=== PATIENT | male | born 1940 | race Caucasian/White ===

== ENCOUNTER 2016-11-09 11:35 | Inpatient (IN) | payer OTHER, SELFPAY ==
[~2016-11-09] VITALS: Ht 180.3 cm; Wt 59.0 kg
[~2016-11-09 11:35] MED LIST: ALPHAGAN P5 ML OP; ASPIRIN EC81 MG PO; ATENOLOL25 MG PO; CATAPRES 0.1MG0.1 MG PO; HYZAAR 50-12.51 EACH PO; LASIX20 MG PO; LIPITOR20 MG PO; LUMIGAN5 ML OP; NORCO 5-325 TA1 EACH PO; SYNTHROID150 MCG PO; TYLENOL 325MG325 MG PO; VITAMIN B-1000 MCG/M IM
[2016-11-09 11:51] LABS: HEMOGLOBIN 11.3 gm/dl (14.0-17.5); RED BLOOD COUNT 4.17 M/UL (4.20-5.50); WHITE BLOOD COUNT 5.6 K/UL (4.5-11.0)
[2016-11-09 12:20] LABS: BUN/CREATININE RATIO 14 (0-10)
[2016-11-09] MEDS ORDERED: TENORMIN 50 MG50 MG PO (19:47)
[2016-11-09] MEDS ORDERED: LEXAPRO5 MG PO (19:48)
[2016-11-09] MEDS ORDERED: NEURONTIN 300300 MG PO (19:48)
[2016-11-09] MEDS ORDERED: PROTONIX 40 MG40 M1 PO (19:50)
[2016-11-09] MEDS ORDERED: PLAVIX75 MG PO (19:51)
[2016-11-09] MEDS ORDERED: SYNTHROID125 MCG PO (19:51)
[2016-11-09] MEDS ORDERED: LIORESAL TAB 1010 MG PO (19:52)
[2016-11-09] MEDS ORDERED: HYDRALAZINE HCL50 MG PO (19:52)
[2016-11-09] MEDS ORDERED: REQUIP0.25 MG PO (19:53)
[2016-11-10 05:27] LABS: HEMOGLOBIN 12.1 gm/dl (14.0-17.5); RED BLOOD COUNT 4.42 M/UL (4.20-5.50)
[2016-11-10 05:45] LABS: BUN/CREATININE RATIO 14 (0-10)
[2016-11-13 06:24] LABS: HEMOGLOBIN 11.9 gm/dl (14.0-17.5); RED BLOOD COUNT 4.38 M/UL (4.20-5.50); WHITE BLOOD COUNT 14.7 K/UL (4.5-11.0)
[2016-11-14 06:24] LABS: HEMOGLOBIN 10.9 gm/dl (14.0-17.5)
[2016-11-14 06:31] LABS: WHITE BLOOD COUNT 8.9 K/UL (4.5-11.0)
[2016-11-15 06:00] LABS: BUN/CREATININE RATIO 27 (0-10)
[2016-11-16 06:22] LABS: BUN/CREATININE RATIO 30 (0-10)
== END 2016-11-19 18:32 | DRG 91 ==
LOC: ER1 11:35 → ZEROF 17:55 → M/S 20:20
PROVIDERS: Family Medicine; Internal Medicine; ADMIT Emergency Medicine
DX: G24.9 Dystonia, unspecified (principal); G92 Toxic encephalopathy; E43 Unspecified severe protein-calorie malnutrition; N17.9 Acute kidney failure, unspecified; M47.12 Other spondylosis with myelopathy, cervical region; M47.16 Other spondylosis with myelopathy, lumbar region; M47.14 Other spondylosis with myelopathy, thoracic region; G82.20 Paraplegia, unspecified; Z68.1 Body mass index [BMI] 19.9 or less, adult; T44.3X5A Adverse effect of other parasympatholytics [anticholinergics and antimuscarinics] and spasmolytics, initial encounter; I12.9 Hypertensive chronic kidney disease with stage 1 through stage 4 chronic kidney disease, or unspecified chronic kidney disease; R26.81 Unsteadiness on feet; M50.30 Other cervical disc degeneration, unspecified cervical region; M53.84 Other specified dorsopathies, thoracic region; E78.5 Hyperlipidemia, unspecified; I25.10 Atherosclerotic heart disease of native coronary artery without angina pectoris; M19.90 Unspecified osteoarthritis, unspecified site; K57.90 Diverticulosis of intestine, part unspecified, without perforation or abscess without bleeding; I73.9 Peripheral vascular disease, unspecified; N18.3 Chronic kidney disease, stage 3 (moderate); G25.81 Restless legs syndrome; Z51.89 Encounter for other specified aftercare; E03.9 Hypothyroidism, unspecified; H40.9 Unspecified glaucoma; M10.9 Gout, unspecified; I70.1 Atherosclerosis of renal artery; Z96.0 Presence of urogenital implants; I71.9 Aortic aneurysm of unspecified site, without rupture; Z79.899 Other long term (current) drug therapy; Z79.02 Long term (current) use of antithrombotics/antiplatelets; Z87.891 Personal history of nicotine dependence; Z80.0 Family history of malignant neoplasm of digestive organs; Z83.3 Family history of diabetes mellitus; Z81.8 Family history of other mental and behavioral disorders; Z82.3 Family history of stroke; K80.20 Calculus of gallbladder without cholecystitis without obstruction
CPT/HCPCS: 36415; 70450; 70551; 71010; 72141; 72146; 72148; 80048; 80053; 81001; 82550; 82553; 82962; 83735; 83874; 84443; 84484; 85025; 85027; 86140; 87086; 93005; 97110; 97530; 97535; 99285; G0378; J1200; J1650; J3360; J7040

== ENCOUNTER 2020-07-29 12:21 | Inpatient (IN) | payer OTHER ==
[~2020-07-29] VITALS: Ht 170.2 cm; Wt 63.4 kg
[~2020-07-29 12:21] MED LIST changes: +BRIMONIDINE 0.110 ML EYEBOTH; +DIGOXIN125 MCG PO; +DULCOLAX10 MG PR; +ELIQUIS 2.5 MG2.5 MG PO; +ELIQUIS 5 MG TAB5 MG PO; +FERROUS SULFAT325 M2 PO; +FLOMAX 0.4 MG0.4 MG PO; +HYDRALAZINE HCL50 MG PO; +LATANOPROST 0.7.5 ML EYEBOTH; +LEXAPRO5 MG PO; +LIORESAL TAB 1010 MG PO; +LIPITOR40 MG PO; +LOPRESSOR 25 MG25 MG PO; +LOPRESSOR 50 MG50 MG PO; -LUMIGAN5 ML OP; +MELATONIN3 MG PO; +MIRTAZAPINE15 MG PO; +NEURONTIN 300300 MG PO; +PERCOCET 5/325 T1 EA PO; +PLAVIX75 MG PO; +POLYETHYLENE GL17 GM PO; +PROTONIX 40 MG40 M1 PO; +REQUIP0.25 MG PO; +ROPINIROLE HCL1 MG PO; +SENNA-TIME S T1 EACH PO; +SEROQUEL50 MG PO; +SYNTHROID112 MCG PO; +TENORMIN 50 MG50 MG PO; +THERAGRAN M TAB1 EA PO; +TIZANIDINE HCL4 M1 PO; +XYZAL5 MG PO
[2020-07-29 13:21] LABS: RED BLOOD COUNT 3.43 M/UL (4.20-5.50); WHITE BLOOD COUNT 10.2 K/UL (4.5-11.0)
[2020-07-29] MEDS ORDERED: BRIMONIDINE TAR15 M1 EYEBOTH (16:14)
[2020-07-29] MEDS ORDERED: SYNTHROID125 MCG PO (16:15)
[2020-07-29] MEDS ORDERED: TRUSOPT 2% OP S10 ML EYEBOTH (16:15)
[2020-07-29] MEDS ORDERED: MECLIZINE HCL25 MG PO (17:25)
[2020-07-29] MEDS ORDERED: BACLOFEN20 MG PO (17:25)
[2020-07-29] MEDS ORDERED: VISTARIL 50 MG50 MG PO (17:25)
[2020-07-30 00:05] LABS: HEMOGLOBIN 9.1 gm/dl (14.0-17.5)
[2020-07-30 07:53] LABS: HEMOGLOBIN 9.3 gm/dl (14.0-17.5)
[2020-07-30 07:54] LABS: RED BLOOD COUNT 4.22 M/UL (4.20-5.50); WHITE BLOOD COUNT 12.8 K/UL (4.5-11.0)
[2020-07-30 15:41] LABS: HEMOGLOBIN 10.1 gm/dl (14.0-17.5)
[2020-07-31 06:12] LABS: HEMOGLOBIN 10.4 gm/dl (14.0-17.5); RED BLOOD COUNT 4.62 M/UL (4.20-5.50); WHITE BLOOD COUNT 17.4 K/UL (4.5-11.0)
[2020-07-31] MEDS ORDERED: ROXANOL SOLN20 MG/ML PO (12:29)
[2020-07-31] MEDS ORDERED: DURAGESIC1 EAC4 TD (12:29)
== END 2020-07-31 18:43 | DRG 374 ==
LOC: ER1 12:21 → CDU 15:35 → M/S 07-30 19:58
PROVIDERS: Physician Assistant; Physician Assistant Medical; ADMIT Internal Medicine
PROC: 30233N1 Transfusion of Nonautologous Red Blood Cells into Peripheral Vein, Percutaneous Approach (ICD-10-PCS; principal; 2020-07-29)
DX: C78.5 Secondary malignant neoplasm of large intestine and rectum (principal); J15.9 Unspecified bacterial pneumonia; D62 Acute posthemorrhagic anemia; N17.9 Acute kidney failure, unspecified; I48.20 Chronic atrial fibrillation, unspecified; G61.0 Guillain-Barre syndrome; Z20.822 Contact with and (suspected) exposure to COVID-19; D50.9 Iron deficiency anemia, unspecified; I25.10 Atherosclerotic heart disease of native coronary artery without angina pectoris; D72.829 Elevated white blood cell count, unspecified; I12.9 Hypertensive chronic kidney disease with stage 1 through stage 4 chronic kidney disease, or unspecified chronic kidney disease; N18.2 Chronic kidney disease, stage 2 (mild); R59.1 Generalized enlarged lymph nodes; Z79.01 Long term (current) use of anticoagulants; Z95.5 Presence of coronary angioplasty implant and graft; E78.5 Hyperlipidemia, unspecified; G47.33 Obstructive sleep apnea (adult) (pediatric); H40.9 Unspecified glaucoma; E03.9 Hypothyroidism, unspecified; I27.20 Pulmonary hypertension, unspecified; Z66 Do not resuscitate; Z51.5 Encounter for palliative care; Z87.81 Personal history of (healed) traumatic fracture; Z98.42 Cataract extraction status, left eye; Z98.41 Cataract extraction status, right eye; Z88.0 Allergy status to penicillin; Z88.8 Allergy status to other drugs, medicaments and biological substances; Z95.820 Peripheral vascular angioplasty status with implants and grafts; Z79.02 Long term (current) use of antithrombotics/antiplatelets; Z79.890 Hormone replacement therapy; Z79.899 Other long term (current) drug therapy; Z87.891 Personal history of nicotine dependence; Z83.3 Family history of diabetes mellitus; Z82.49 Family history of ischemic heart disease and other diseases of the circulatory system; Z84.1 Family history of disorders of kidney and ureter; Z80.0 Family history of malignant neoplasm of digestive organs
CPT/HCPCS: 11740; 36415; 36430; 71045; 80048; 80053; 81001; 82272; 82378; 82550; 82553; 82728; 83540; 83550; 83605; 83615; 83874; 84484; 85014; 85018; 85025; 85027; 85610; 86850; 86900; 86901; 86920; 93005; 94660; 94760; 96374; 96375; 96376; 99285; C9113; J0360; J0456; J0696; J1756; J1956; J2185; J2270; J7030; P9016; Q0177; Q9967; U0002